=== PATIENT | female | born 1935 | race Hispanic/Latino ===

== ENCOUNTER 2020-12-09 06:11 | Day surgery (SDC) | payer OTHER ==
[2020-12-09] VITALS (8 sets, daily range): BP systolic 84–135; BP diastolic 48–82
[~2020-12-09] VITALS: Ht 152.4 cm; Wt 74.8 kg
[2020-12-09] MEDS ORDERED: SODIUM CHLORIDE 0.9% 1000ML 1,000 ML IV ONE (07:09)
[2020-12-09] MEDS ORDERED: CLOP75TA32 PO (07:16)
[2020-12-09] MEDS ORDERED: CITA10TA7 PO (07:16)
[2020-12-09] MEDS ORDERED: AMLO-257 PO (07:16)
[2020-12-09] MEDS ORDERED: SIMV-43 PO (07:16)
[2020-12-09] MEDS ORDERED: ASPI-1443 PO (07:16)
[2020-12-09] MEDS ORDERED: LEVE-43 PO (07:16)
[2020-12-09] MEDS ORDERED: GABA-533 PO (07:16)
[2020-12-09] MEDS ORDERED: MELO-108 PO (07:16)
[2020-12-09] MEDS ORDERED: PROPOFOL 10 MG/ML 20ML VIAL IV ONE (08:09)
== END 2020-12-09 09:03 | disposition home or self-care (01) ==
LOC: ENDO 06:11 → DAH 06:11 → ENDO 09:03
PROVIDERS: ATTEND Internal Medicine Gastroenterology
DX: R10.13 Epigastric pain (principal); Z20.822 Contact with and (suspected) exposure to COVID-19; K29.70 Gastritis, unspecified, without bleeding; K21.9 Gastro-esophageal reflux disease without esophagitis; F41.9 Anxiety disorder, unspecified; F32.9 Major depressive disorder, single episode, unspecified; M19.90 Unspecified osteoarthritis, unspecified site; Z90.710 Acquired absence of both cervix and uterus; Z98.890 Other specified postprocedural states; Z79.1 Long term (current) use of non-steroidal anti-inflammatories (NSAID); Z88.3 Allergy status to other anti-infective agents
CPT/HCPCS: 43239; 87635; 93005; A4215 ×2; A4221; A4222; A4223; A4606; A4620; A4657; A4663; C9803; J2704; J7030